=== PATIENT | female | born 1990 | race African-American/Black ===

== ENCOUNTER 2020-03-31 10:56 | Outpatient (CLI) | payer OTHER, SELFPAY ==
--- NOTE | ~2020-03-31 | US_ITS ---
EXAMINATION: US OB <= 14 weeks fetus DATE: 03/31/2020 11:24 INDICATION: viability assessment and dating during first trimester . TECHNIQUE: Real-time pelvic transabdominal and transvaginal ultrasound was performed. COMPARISON: None. FINDINGS: The uterus measures 11.4 x 5.4 x 6 cm. There is an intrauterine gestational sac. A yolk sa c is identified. heart motion is identified measuring 158 beats per minute (bpm) by M-mode Dopp ler. The crown rump length measures 2.7 cm , which correlates with an estimated gestational age of 9 weeks and 3 day(s) (+/-) 6 day(s). The left ovary is not visualized however no left adnexal abnormality is seen. The right ovary measure s 2.9 x 2.3 x 2.8 cm. There is normal vascular flow in the right ovary. There is no free fluid in the pelvis. IMPRESSION: 1. Live intrauterine with an estimated gestational age of 9 weeks and 3 day(s) (+/-) 6 day( s) and an estimated delivery date of 10/31/2020. Reviewed, dictated and finalized at location A. IMPRESSION: 1. Live intrauterine with an estimated gestational age of 9 weeks and 3 day(s) (+/-) 6 day(s) and an estimated delivery date of 10/31/2020.
== END 2020-03-31 10:57 ==
PROVIDERS: Visit Provider Obstetrics & Gynecology
DX: Z36.9 Encounter for antenatal screening, unspecified (principal); Z3A.09 9 weeks gestation of pregnancy
CPT/HCPCS: 76801

== ENCOUNTER 2020-05-10 12:45 | Outpatient (CLI) | payer OTHER, SELFPAY ==
[2020-05-10 13:46] LABS: Basophils Percent Auto 0.3 % (0.2-1.2); Eosinophils Absolute Auto 0.1 K/mm3 (0-0.3); Eosinophils Percent Auto 0.7 % (0-4.4); Hematocrit 40.2 % (37.0-47.0); Hemoglobin 13.6 g/dL (12.0-15.0); Immature Granulocyte Absolute 0.02 K/mm3 (0.00-0.031); Immature Granulocyte Percent A 0.3 % (0-0.5); Lymphocytes Absolute Auto 2.16 K/mm3 (0.9-3.2); Lymphocytes Percent Auto 31.2 % (18.3-44.2); Mean Corpuscular HGB Conc 33.8 g/dl (32-36); Mean Corpuscular Hemoglobin 27.6 pg (26-34); Mean Corpuscular Volume 81.7 fl (80-100); Mean Platelet Volume 9.9 fl (7.4-10.4); Monocytes Absolute Auto 0.5 K/mm3 (0.1-0.6); Monocytes Percent Auto 7.6 % (2.6-8.5); Neutrophils Absolute Auto 4.2 K/mm3 (1.3-6.7); Neutrophils Percent Auto 59.9 % (45.5-73.1); Platelet Count Result 234 k/mm3 (150-375); Red Blood Count 4.92 M/mm3 (4.2-5.4); Red Cell Distribution Width 14.1 % (11.5-14.5); White Blood Count 6.9 K/mm3 (4.5-10.0)
[2020-05-10 13:51] LABS: Add Urine Microscopic? YES; Appearance Urine Cloudy (Clear); Bacteria Urine 3+ /hpf; Bilirubin Urine Negative (Negative); Blood Urine Negative (Negative); Color Urine Yellow (Yellow); Glucose Urine UA Negative (Negative); Ketones Urine Negative (Negative); Leukocyte Esterase Ur 2+ LEU/UL (NEGATIVE); Mucus Urine Moderate /lpf; Nitrate Urine Negative (Negative); Protein Urine Negative (Negative); Specific Grav Ur 1.018 (1.001-1.035); Squamous Epithelial Cell Urine Many /hpf (Few); Urobilinogen Urine Negative mg/dL (<2.0)
[2020-05-10 14:39] LABS: HIV 1/2 Ab P24 Ag Result Negative (Negative)
[2020-05-10 15:20] LABS: Hepatitis B Surface Antigen Negative (Negative)
[2020-05-10 15:26] LABS: Hepatitis C Virus Antibody Negative (Negative)
[2020-05-12 10:55] LABS: Rapid Plasma Reagin Non-Reactive (NonReactive)
[2020-05-16 14:55] LABS: Hematocrit 41.6 % (35.0-45.0); Hemoglobin 13.7 g/dL (11.7-15.5); MCH 27.9 pg (27.0-33.0); MCV 84.7 FL (80.0-100.0); RDW 15.8 % (11.0-15.0); Red Blood Cell Count 4.91 Mill/uL (3.80-5.10)
== END 2020-05-10 12:46 | disposition home or self-care (01) ==
PROVIDERS: PCP Internal Medicine; Visit Provider Obstetrics & Gynecology
DX: Z34.90 Encounter for supervision of normal pregnancy, unspecified, unspecified trimester (principal)
CPT/HCPCS: 36415; 81001; 82306; 83021; 84443; 85025; 86592; 86703; 86762; 86787; 86803; 86850; 86900; 86901; 87086; 87088; 87340; G0432

== ENCOUNTER 2020-10-10 10:16 | Inpatient (IN) | payer OTHER, SELFPAY ==
[2020-10-10] VITALS (173 sets, daily range): BP systolic 65–131; BP diastolic 33–113; PULSE 65–225; TEMP 36.6–37.3; O2SAT 93–100; BMI 41.5
--- NOTE | 2020-10-10 10:16 | LDADM ---
This patient, Mila Bolivar, was admitted to Labor/Delivery/Recovery 106 on 10/10/20 at 10:16. Plans for labor, pain management and were discussed with patient. Patient/family oriented to hospital policies and general routines including ID bracelet, bed and alarms, visiting hours, pain management, procedures, bathroom and other care routines, personal items, smoking policy, room service/diet and guest tray routines, security routines, and visiting hours. Patient/Family are encouraged to report perceived risks to care and to ask questions if they do not understand what they are told or what they should do. See OBIX for further documentation.
--- NOTE | 2020-10-10 11:04 | PM.IMHP ---
H&P: HPI History of Present Illness Date/Time: 10/10/20 11:04 Chief Complaint: Rupture of membranes at 37 weeks Narrative: 30 yo, primigravida was seen in office for her routine PNC and stated she has noticed leaking of fluid since 9 am . Occasionally feeling ctxns.Denies Vb.Feels FM. In office GBS collected and pt sent to [facility] & [facility] and has positive ROM plus test. Review of Systems Review of Systems: All systems reviewed & are unremarkable except as noted in HPI and below Constitutional: Constitutional: Reports no additional constitutional complaints, Denies chills, Denies fever(s) and Denies headache(s) Eyes: Eyes: Reports as per HPI and Reports no additional eye complaints ENT: Reports system reviewed and no additional complaints, except as documented, Reports as per HPI, Reports Normal hearing present and Denies headache(s) Cardiovascular: Cardiovascular: Reports as per HPI, Reports no additional cardiovascular complaints, Denies chest pain and Denies dyspnea Respiratory: Respiratory: Reports as per HPI, Reports no additional respiratory complaints, Denies cough and Denies dyspnea Gastrointestinal: Gastrointestinal: Reports as per HPI, Reports no additional gastrointestinal complaints, Denies abdominal pain, Denies hematochezia, Denies change in bowel habits, Denies change in stool character, Denies constipation, Denies GI cramping, Denies heartburn, Denies diarrhea, Denies nausea, Denies vomiting and Denies hematemesis Genitourinary: Genitourinary: Reports no additional female genitourinary complaints, Reports as per HPI, Denies abnormal vaginal bleeding, Denies metrorrhagia, Denies hematuria, Denies change in libido, Denies urinary frequency, Denies post void dribbling, Denies genital pruritis, Denies genital lesions, Denies menorrhagia, Denies dyspareunia, Denies dysmenorrhea, Denies dysuria, Denies pelvic pain, Denies sexual dysfunction, Denies urinary incontinence, Denies urinary hesitancy, Denies urinary urgency, Denies vaginal discharge, Denies vaginal dryness, Denies vaginal odor and Denies vaginal pruritus Musculoskeletal: Musculoskeletal: Reports no additional musculoskeletal complaints and Reports as per HPI Integumentary/Breasts: Skin/Breast: Reports system reviewed and no additional complaints, except as docu, Reports as per HPI, Denies breast skin changes, Denies breast pain, Denies breast mass and Denies nipple discharge Neurologic: Reports system reviewed and no additional complaints, except as documented, Reports as per HPI, Reports Normal hearing present and Denies headache(s) Psychiatric: Psychiatric: Reports no additional psychiatric complaints, Reports as per HPI, Denies anxiety, Denies change in libido and Denies depression Endocrine: Endocrine: Reports no additional endocrine complaints, Reports as per HPI and Denies change in libido Hematologic/Lymphatic: Hematologic/Lymphatic: Reports no additional hematologic/lymphatic complaints, Reports as per HPI, Denies easy bleeding and Denies easy bruising Allergic/Immunologic: Allergic/Immunologic: Reports no additional allergic/immunologic complaints and Reports as per HPI PMFSH Past Medical History Medical History (Updated 10/10/20 @ 11:11 by Layla Boyd MD) Hypertension Surgical History Surgical History Torn ACL Family History Family History Father Testicular cancer Social History Social History Smoking status: Former smoker Tobacco type: cigarettes Alcohol intake: current Drinks per week: 2 Substance use: current Substance use type: marijuana Meds Home Medications and Allergies Home Medications Medication Instructions Recorded Confirmed Type folic acid 1 mg tablet 1 mg PO DAILY 04/22/20 09/23/20 History vits 75-iron 28 mg-folic pkg PO 04/22/20
[2020-10-10] MEDS: AMPICILLIN 2 GM/NS 100 ML 2 GM/100 ML BAG IVPB (11:08)
[2020-10-10] MEDS: LACTATED RINGERS 1,000 ML 125 ML IV CONT ×2 (11:08→19:10)
[2020-10-10] MEDS: OXYTOCIN 30 UNITS/NS 500 ML 30 UNITS/500 ML BAG 6 UNITS IV CONT (11:09)
[2020-10-10 12:15] LABS: HIV 1/2 Ab P24 Ag Result Negative (Negative)
[2020-10-10] MEDS: AMPICILLIN 1 GM/NS 50 ML 1 GM/50 ML BAG IVPB ×3 (14:53→22:53)
[2020-10-10] MEDS: fentaNYL CITRATE INJ (*CRX) 100 MCG/2 ML VIAL IV PUSH (16:44)
--- NOTE | 2020-10-10 21:11 | WPDANESEPP ---
Anes - Eval Pre Procedure Procedure: labor epidural Date/Time: 10/10/20 190 Surgeon: Oliver Preop Diagnosis: labor pain Pre Op Diagnosis: Labor Patient Data Age: 30 Gender: F Height: 1.57 m Weight: 103 kg Last Vital Signs Temp 36.6 C 10/10/20 18:30 Pulse 85 10/10/20 21:01 BP 107/63 10/10/20 21:01 Pulse Ox 96 10/10/20 21:07 Allergies Allergy/AdvReac Type Severity Reaction Status Date / Time No Known Allergies Allergy Verified 10/10/20 09:53 Home Medications Medication Instructions Recorded Confirmed Type folic acid 1 mg tablet 1 mg PO DAILY 04/22/20 10/10/20 History vits 75-iron 28 mg-folic 1 pkg PO DAILY 04/22/20 10/10/20 History acid 800 mcg-omega-3 oral combo pack ergocalciferol (vitamin D2) 1,250 1,250 mcg PO WEEKLY #14 cap 05/13/20 10/10/20 Rx mcg (50,000 unit) capsule cetirizine 10 mg capsule 10 mg PO DAILY 06/17/20 10/10/20 History Laboratory Tests 10/10/20 10/10/20 11:06 11:06 HIV 1&2 Ab/P24 Ag 4thGn Negative (Negative) Blood Type O Positive Antibody Screen Negative Patient hx anesthesia problems: none Family hx anesthesia problems: none PMFSH Past Medical History Medical History Hypertension Surgical History Surgical History Torn ACL Family History Family History Father Testicular cancer Social History Social History Smoking status: Former smoker Tobacco type: cigarettes Second hand tobacco smoke exposure: No Alcohol intake: current Drinks per week: 2 Substance use: never Substance use type: marijuana Gender identity (if verbalized by the patient): Female Spiritual care concerns: No Exam Day of Procedure 10/10/20 21:11 Patient weight: morbidly obese Heart: regular rate and rhythm Lungs: clear to auscultation and normal air movement Airway: Mallampati scale class II Neurological: alert and oriented
[2020-10-11] VITALS (230 sets, daily range): BP systolic 53–188; BP diastolic 12–165; PULSE 31–239; RESP 16; TEMP 36.5–37.8; O2SAT 79–100
[2020-10-11] MEDS: ONDANSETRON INJ 4 MG/2 ML VIAL IV PUSH (00:57)
[2020-10-11] MEDS: LACTATED RINGERS 1,000 ML 125 ML IV CONT ×2 (00:59→04:50)
[2020-10-11] MEDS: AMPICILLIN 1 GM/NS 50 ML 1 GM/50 ML BAG IVPB ×2 (03:15→07:39)
[2020-10-11] MEDS: SODIUM CHLORIDE 0.9% IV 300 ML 600 ML I-UTERINE (05:34)
--- NOTE | 2020-10-11 10:37 | PM.IMHP ---
H&P: HPI History of Present Illness Date/Time: 10/11/20 10:37 Chief Complaint: PROM at term x 24 hr, intolerance to labor Failure to progress Narrative: 30 yo Primigravida who is been admitted yesterday at 37 weeks with PROM at term.Pt had PROM at term around 9 am yesterday. Pt is afebrile and is on antibiotics for GBS protocol as it is unknown.When pt admitted cervical exam was 1 cm /long/-3 and was started on Pitocin per protocol. During the labor process multiple times Pitocin was stopped due to intolerance to labor. Also amnioinfusion was performed .Pt cervical exam was 6 cm/80/-2 with moderate amount of caput formation.As due to intolerance to labor and failure to progress will proceed with Primary CD. Procedure discussed in detail as ell as risk of procedure i.e infection,bleeding may require BT which pt agrees, injury to bowel/bladder and adjacent structure/anesthesia risk ,can be life threatening. Pt as well as FOB voiced verbalized. ALL Question answered. Review of Systems Constitutional: Constitutional: Reports as per HPI, Denies chills and Denies fever(s) Eyes: Eyes: Denies blurry vision and Denies change in vision ENT: Reports Normal hearing present Cardiovascular: Cardiovascular: Reports as per HPI, Denies chest pain and Denies dyspnea Respiratory: Respiratory: Denies cough and Denies dyspnea Gastrointestinal: Gastrointestinal: Reports as per HPI Genitourinary: Genitourinary: Reports as per HPI [facility] Past Medical History Medical History (Updated 10/11/20 @ 10:49 by Layla Boyd MD) Failure to progress in labor intolerance to labor, delivered, current hospitalization Hypertension PROM (premature rupture of membranes) Surgical History Surgical History Torn ACL Family History Family History Father Testicular cancer Social History Social History Smoking status: Former smoker Tobacco type: cigarettes Second hand tobacco smoke exposure: No Alcohol intake: current Drinks per week: 2 Substance use: never Substance use type: marijuana Gender identity (if verbalized by the patient): Female Spiritual care concerns: No Meds Home Medications and Allergies Home Medications Medication Instructions Recorded Confirmed Type folic acid 1 mg tablet 1 mg PO DAILY 04/22/20 10/10/20 History vits 75-iron 28 mg-folic 1 pkg PO DAILY 04/22/20 10/10/20 History acid 800 mcg-omega-3 oral combo pack ergocalciferol (vitamin D2) 1,250 1,250 mcg PO WEEKLY #14 cap 05/13/20 10/10/20 Rx mcg (50,000 unit) capsule cetirizine 10 mg capsule 10 mg PO DAILY 06/17/20 10/10/20 History Allergies Allergy/AdvReac Type Severity Reaction Status Date / Time No Known Allergies Allergy Verified 10/10/20 09:53 Vital Signs Vital Signs - 24 hr 10/10/20 10:46 10/10/20 11:00 10/10/20 11:16 Temperature 97.9 F Pulse Rate 98 99 Blood Pressure 125/68 99/81 L Pulse Oximetry 10/10/20 11:31 10/10/20 11:46 10/10/20 12:01 Temperature Pulse Rate 97 79 84 Blood Pressure 91/63 L 112/77 91/73 L Pulse Oximetry 10/10/20 12:16 10/10/20 12:31 10/10/20 12:46 Temperature Pulse Rate 88 103 H 87 Blood Pressure 108/74 123/69 110/71 Pulse Oximetry 10/10/20 13:00 10/10/20 13:01 10/10/20 13:17 Temperature 98.1 F Pulse Rate 91 86 Blood Pressure 124/76 110/65 Pulse Oximetry 10/10/20 13:31 10/10/20 13:46 10/10/20 14:01 Temperature Pulse Rate 93 76 103 H Blood Pressure 104/59 L 105/50 L 112/86 Pulse Oximetry 10/10/20 14:16 10/10/20 14:31 10/10/20 14:46 Temperature Pulse Rate 89 103 H 94 Blood Pressure 106/53 L 107/77 118/74 Pulse Oximetry 10/10/20 14:57 10/10/20 15:06 10/10/20 15:11 Temperature 98.1 F Pulse Rate Blood Pressure Pulse Oxim
--- NOTE | 2020-10-11 10:53 | WPDHPUPDATE1 ---
History and Physical Update Update Date/Time: 10/11/20 10:53 History and Physical has been reviewed, including an updated exam of the patient. There are NO changes in the patient's condition. Risks, benefits, and alternatives have been discussed and questions answered. Patient agrees to proceed with procedure.
--- NOTE | 2020-10-11 11:02 | WPDANESEFPP ---
Anes - Eval Final PreProcedure Day of Procedure 10/11/20 11:02 Patient weight: morbidly obese Heart: regular rate and rhythm Lungs: clear to auscultation Neurological: alert and oriented ASA classification: III Emergent: yes Anesthetic plan: proceed Anesthesia type and monitoring: regional epidural and standard monitoring Other findings: exam per JV Informed Consent: The patient's anesthetic plan and its attendant risks and benefits were discussed with the patient/family/POA. Questions were solicited and answers provided to the satisfaction of the patient/family/POA.
--- NOTE | 2020-10-11 12:14 | PM.OBPRVD ---
OB - Delivery Note Procedure Delivery date: 10/11/20 Procedure: Procedures Operation Date: 10/11/20 10:45 <No data on this case meets the specified criteria> Intrapartal events: Prolonged Labor > 20 hours, Intolerance and Failure to Progress in Labor Induction method: per pitocin protocol Delivery monitor: internal FHT and internal uterine Route of delivery: Specimen: Yes (cord blood, gases, placenta) Quantitative Blood Loss (ml): 600 Anesthesia type: Epidural Disposition: floor Complications: None [place] Baby Date of : 10/11/20 Weeks of gestation at delivery: 37 Infant gender: Male Weight (pounds): 5 Weight (ounces): 13 presentation: vertex Placenta delivery description: Spontaneous cord vessel description: 3 Vessels, Nuchal Cord (x1) and Around Body x2 score one minute: 8 score five minutes: 8
--- NOTE | 2020-10-11 12:18 | PM.OP ---
Procedure Note - Brief Procedure Note - Brief Date of procedure: 10/11/20 Pre-op diagnosis: Labor IUP at 37 weeks with prolonged PROM intolerance to labor Failure to progress Post-op diagnosis: same Procedure performed: Primary section Description of procedure: After informing the risk of the procedure that is infection, bleeding which may require blood transfusion which patient agrees, injury to bowel and bladder adjacent structures, anesthesia risk, and can be life-threatening, informed consent was obtained from the patient. Patient was taken to the OR and given dorsal supine position with a leftward tilt after dosing epidural anesthesia. patient was prepped and draped in normal sterile fashion. Patient already had Shea catheter as she was in labor . time-out was performed. Patient received antibiotic as per protocol. A Pfannenstiel skin incision was made with the scalpel and carried to the underlying layer of fascia. Fascia was incised in the midline and extended laterally bluntly. The inferior aspect of the fascial incision was grasped with the Leatha clamps elevated underlying rectus muscle dissected off bluntly. Similarly the inferior aspect of the fascial incision was grasped with a Leatha clamp elevated and underlying rectus muscle dissected off bluntly. Rectus muscles in midline and peritoneal cavity entered bluntly. Peritoneal cavity was extended superiorly and inferiorly with good visualization of bladder. Tejinder retractor was placed. Bladder blade was placed. Vesicouterine peritoneum was identified and bladder flap was created digitally. Bladder blade reinserted. Transverse incision was then made on the lower uterine segment and extended laterally bluntly. head was delivered atraumatically and the nuchal cord was released. After delivering the head and the rest of the torso was delivered. Infant nose and mouth was suctioned cord was clamped and cut and handed to waiting clinical investigator. Cord blood and gases were collected. Placenta was delivered spontaneously with trailing membranes. Uterus was exteriorized and cleared of all clots. Uterine incision was approximated with 0 Polysorb in a running locked fashion. Second imbricated layer of 0 Polysorb was performed. Excellent hemostasis was noted. Posterior cul-de-sac was cleared of all clots. Uterus was entered into the abdomen and the lateral gutters were cleared of all clots. One more time excellent hemostasis noted at the uterine incision site. With psychogenic peritoneum was approximated with 3 0 Polysorb. Peritoneum was approximated with Schueler Polysorb. Fascia was approximated with 0 Polysorb. Subcutaneous layer was approximated with Schueler Polysorb and skin was approximated with 4 0 Biosyn and Dermabond. Patient tolerated procedure well. Sponge lap needle counts correct x2. taken to nursery and mother was taken to the labor and delivery recovery room awake in stable condition. Anesthesia: epidural Surgeon: Layla Boyd MD Estimated blood loss (mL): 600 IV fluids (mL): 1,000 Urine output (mL): 125 Drains: Yes (Shea) Packing: No Pathology: yes (Placenta) Complications: No immediate complications Condition: stable Disposition: floor Findings: Term male infant delivered via vertex Presentation , Direct OP , extended neck, nuchal cord x1, left arm nuchal cord x2, Placenta delivered spontaneously and sent to pathology. Normal uterus fallopian tubes and ovaries.
[2020-10-11] MEDS: MORPHINE SULFATE (*CRX) 2 MG/ML INJ 3 MG IV PUSH (12:31)
[2020-10-11] MEDS: KETOROLAC 30 MG/ML VIAL (*BKC) IV PUSH (16:04)
[2020-10-11] MEDS: DEXTROSE 5%/0.45% SOD CHL 1,000 ML 125 ML IV CONT (16:08)
[2020-10-11] MEDS: DOCUSATE SODIUM 100 MG CAPSULE PO (19:45)
[2020-10-11] MEDS: IBUPROFEN 600 MG TABLET PO (23:24)
[2020-10-11] MEDS: ACETAMINOPHEN 325 MG TABLET 650 MG PO (23:25)
[2020-10-12] VITALS: BP 104/62; PULSE 81; RESP 16; TEMP 36.7; O2SAT 100
--- NOTE | 2020-10-12 03:00 | PC.NURSE ---
Daylight Savings Time For Daylight Savings Time Beginning in the Spring - Clocks are moved ahead. For [facility], the time of change occurs at 0200 hrs. Time is taken from the medical observer. This entry on the patient's chart recognizes the change in time reflected during documentation. Example: 2 entries for vital signs may be charted for 0200 hrs.
[2020-10-12 04:00] VITALS: BP 100/66; PULSE 74; RESP 16; TEMP 36.7; O2SAT 98
[2020-10-12 05:47] LABS: Basophils Percent Auto 0.2 % (0.2-1.2); Eosinophils Absolute Auto 0.1 K/mm3 (0-0.3); Eosinophils Percent Auto 0.6 % (0-4.4); Hematocrit 32.9 % (37.0-47.0); Hemoglobin 10.8 g/dL (12.0-15.0); Immature Granulocyte Absolute 0.03 K/mm3 (0.00-0.031); Immature Granulocyte Percent A 0.3 % (0-0.5); Lymphocytes Absolute Auto 1.88 K/mm3 (0.9-3.2); Lymphocytes Percent Auto 17.9 % (18.3-44.2); Mean Corpuscular HGB Conc 32.8 g/dl (32-36); Mean Corpuscular Hemoglobin 27.6 pg (26-34); Mean Corpuscular Volume 83.9 fl (80-100); Mean Platelet Volume 10.2 fl (7.4-10.4); Monocytes Percent Auto 9.3 % (2.6-8.5); Neutrophils Absolute Auto 7.6 K/mm3 (1.3-6.7); Neutrophils Percent Auto 71.7 % (45.5-73.1); Platelet Count Result 144 k/mm3 (150-375); Red Blood Count 3.92 M/mm3 (4.2-5.4); Red Cell Distribution Width 14.5 % (11.5-14.5); White Blood Count 10.5 K/mm3 (4.5-10.0)
[2020-10-12 07:00] VITALS: BP 100/48; PULSE 87; RESP 16; TEMP 36.3; O2SAT 98
[2020-10-12] MEDS: MULTIVIT/MIN/PREN/FOL AC/IRON TABLET 1 TAB PO (09:27)
[2020-10-12] MEDS: DOCUSATE SODIUM 100 MG CAPSULE PO ×2 (09:27→16:23)
[2020-10-12] MEDS: IBUPROFEN 600 MG TABLET PO ×2 (09:27→16:23)
[2020-10-12] MEDS: HYDROcodone/acetaminophen (*CRX) 5-325 MG TABLET 1 TAB PO ×4 (09:28→19:19)
--- NOTE | 2020-10-12 10:03 | PM.OBPNVD ---
OB - PN: Subj Subjective Date/time seen: 10/12/20 10:03 Patient comments: pain well controlled, incisional pain (well controlled), tolerating diet and flatus present [place] baby status: doing well and nursing well [place] feeding status: exclusively breast feeding Narrative: Pain well controlled Tolerating regular diet urinating without difficulty Lochia less than menses. baby boy doing well and BF OB - PN: Obj Data Labs CBC & Chem 7: 10/12/20 05:30 Labs: Laboratory Results - last 24 hr 10/12/20 05:30 WBC 10.5 H RBC 3.92 L Hgb 10.8 L Hct 32.9 L MCV 83.9 MCH 27.6 MCHC 32.8 RDW 14.5 Plt Count 144 L MPV 10.2 Immature Gran % (Auto) 0.3 Neut % (Auto) 71.7 Lymph % (Auto) 17.9 L [place] % (Auto) 9.3 H Eos % (Auto) 0.6 Baso % (Auto) 0.2 Lymph # (Auto) 1.88 [place] # (Auto) 1.0 H Eos # (Auto) 0.1 Baso # (Auto) 0.0 Abs Immat Gran (auto) 0.03 Absolute Neuts (auto) 7.6 H Absolute Nucleated RBC 0.0 Nucleated RBC % 0.0 OB - PN A/P Plan day: 1 Plan: routine care Comments: encourage ambulation BF instructed. Desires infant to be circumcised. discussed procedure in detail as well as risk i.e infection/bleeding/injury to penis. pt voiced verbalized. informed consent obtained. Time Spent With Patient Time: Total time spent is greater than 50% in coordination of care (as documented) at patient's floor/unit and/or counseling patient: Time with patient: 15 - 25 minutes Review of Systems Constitutional: Constitutional: Reports as per HPI, Denies chills and Denies fever(s) Eyes: Eyes: Reports as per HPI and Denies blurry vision ENT: Reports Normal hearing present Cardiovascular: Cardiovascular: Reports as per HPI, Denies chest pain, Denies syncope, Denies lightheadedness and Denies dyspnea Respiratory: Respiratory: Reports as per HPI, Denies cough and Denies dyspnea Gastrointestinal: Gastrointestinal: Reports as per HPI Genitourinary: Genitourinary: Reports as per HPI Musculoskeletal: Musculoskeletal: Reports as per HPI Neurologic: Reports Normal hearing present Exam Const: General: cooperative, healthy appearing, comfortable, no acute distress, well developed, alert, awake and Physically active Nutritional Appearance: obese Orientation/consciousness: patient oriented x3 Limitations: no limitations HENMT: Ears: hearing grossly normal bilaterally Resp: Effort & Inspection: normal respiratory effort and able to speak in complete sentences Auscultation: clear to auscultation bilaterally Cardio: Rate: regular rate Rhythm: regular rhythm GI: Inspection: normal to inspection GI Palp: Yes abdominal tenderness (appropriate for surgery), Yes Soft to palpation and Yes Other GI palpation findings present (Incicison: C/D/I.Fundus firm and below umbilicus) Auscultation: normal bowel sounds Rectal Exam: deferred Neuro: General: oriented to person, oriented to place, oriented to time and patient oriented x3 Extrem: General: normal to inspection, full ROM and no calf tenderness Psych: Appearance: grossly normal Mental Status: mental status grossly normal Speech and movement: Normal speech and movement present Affect: normal affect Attitude: cooperative Thought process: Normal thought process present Thought content: Yes Normal thought content present Insight: Good insight present (Psych) Judgement: Good judgement present (Psych)
--- NOTE | 2020-10-12 10:08 | PM.OBDSVD ---
DS: Admitting Diagnosis Admitting Diagnosis Admitting Diagnosis: PROM at 37 weeks DS: Discharge Diagnosis Discharge Diagnosis (1) intolerance to labor, delivered, current hospitalization: Code(s): O77.9 - Labor and delivery complicated by stress, unspecified Status: Acute (2) Failure to progress in labor: Code(s): O62.2 - Other uterine inertia Status: Acute (3) PROM (premature rupture of membranes): Code(s): O42.90 - Premature rupture of membranes, unspecified as to length of time between rupture and onset of labor, unspecified weeks of gestation Status: Acute OB - DS: Summary OB Procedures : Ultrasound OB Procedures Intrapartum: low cervical, transverse OB Procedures: : None Peripartum Data Delivery Method: Section Procedures: Procedures Operation Date: 10/11/20 10:45 Actual Procedures Side Surgeon p Section Not Applicable Layla Boyd MD complications: none Status at Discharge Functional status at discharge: independent ambulation Overall status at discharge: patient is progressing back to baseline Time Spent with Patient Time attestation: Total time spent providing and/or coordinating discharge services: Exam Const: General: cooperative, healthy appearing, comfortable, no acute distress, well developed, alert, awake and Physically active Nutritional Appearance: obese Orientation/consciousness: patient oriented x3 Limitations: no limitations HENMT: Head: normal to inspection Eyes: General: appearance normal, both eyes and all related structures Resp: Effort & Inspection: normal respiratory effort and able to speak in complete sentences Auscultation: clear to auscultation bilaterally Cardio: Rate: regular rate Rhythm: regular rhythm GI: Inspection: normal to inspection, non-distended and incision (C/D/I) GI Palp: No abdominal tenderness, Yes Soft to palpation and Yes Other GI palpation findings present (Fundus firm below umbilicus) Auscultation: normal bowel sounds Rectal Exam: deferred Skin: General skin exam: normal color Neuro: General: oriented to person, oriented to place, oriented to time and patient oriented x3 Cognition (Neuro): normal cognition Speech: normal speech Extrem: General: normal to inspection, full ROM and no calf tenderness Psych: Appearance: grossly normal Mental Status: mental status grossly normal Speech and movement: Normal speech and movement present Affect: normal affect Attitude: cooperative Thought process: Normal thought process present Thought content: Yes Normal thought content present Insight: Good insight present (Psych) Judgement: Good judgement present (Psych) DS: Data Data Completed and Pending Pending studies at discharge: Pending at discharge 10/11/20 11:23 Surgical [PTH] Routine Labs on day of discharge: Labs from last 24 hours 10/12/20 05:30 WBC 10.5 H RBC 3.92 L Hgb 10.8 L Hct 32.9 L MCV 83.9 MCH 27.6 MCHC 32.8 RDW 14.5 Plt Count 144 L MPV 10.2 Immature Gran % (Auto) 0.3 Neut % (Auto) 71.7 Lymph % (Auto) 17.9 L [place] % (Auto) 9.3 H Eos % (Auto) 0.6 Baso % (Auto) 0.2 Lymph # (Auto) 1.88 [place] # (Auto) 1.0 H Eos # (Auto) 0.1 Baso # (Auto) 0.0 Abs Immat Gran (auto) 0.03 Absolute Neuts (auto) 7.6 H Absolute Nucleated RBC 0.0 Nucleated RBC % 0.0 Discharge Plan Discharge Attending physician on discharge: Layla Boyd Consulting providers: Bneito Hughes Discharging Clinician: Paul Jones Patient Disposition: Home, Self-Care Activity: pelvic rest and other - see discharge instructions Diet: regular Wound Care Instructions: incision open to air Discharge Instructions: Education: Mom and Baby Guide Given to: Patient Follow-Up: Call your delivering provider's office for an appointment to be seen in: 4 weeks Mom and baby should come to the
--- NOTE | 2020-10-12 14:59 | WPDANLDPN2 ---
Anes-Prog Note L&D Date/Time: 10/12/20 14:59 Comfortable throughout: section Neuraxial method: epidural Epidural/Spinal procedure site: clean & non-tender Neuro status: Neuro function grossly intact. Cardiovascular status: normal Respiratory status: normal Airway patency: baseline Mental status: baseline Post-Op hydration status: normal Vital Signs: Last Vital Signs Temp 36.3 C L 10/12/20 07:00 Pulse 87 10/12/20 07:00 Resp 16 10/12/20 07:00 BP 100/48 L 10/12/20 07:00 Pulse Ox 98 10/12/20 07:00 Pain score (VAS): no complaints I/O: Intake & Output 10/11/20 10/12/20 10/12/20 22:59 07:59 15:59 Intake Total Output Total 600 Balance -600 Post-procedural complaints: none Patient feedback: Patient satisfied with anesthetic care.
--- NOTE | 2020-10-12 15:00 | WPDANLDNPN2 ---
Anes-Prog Note L&D-Neuraxial Date/Time: 10/12/20 15:00 Neuraxial medications: epidural PF morphine Opiod-related complaints: none Patient feedback: Patient satisfied with post-operative pain management.
[2020-10-12 20:05] VITALS: BP 104/59; PULSE 110; RESP 16; TEMP 36.4
[2020-10-13] MEDS: IBUPROFEN 600 MG TABLET PO ×4 (01:29→23:53)
--- NOTE | 2020-10-13 07:31 | WPDANLDPN2 ---
Anes-Prog Note L&D Date/Time: 10/13/20 07:31 Comfortable throughout: section Neuraxial method: epidural Epidural/Spinal procedure site: clean & non-tender Neuro status: Neuro function grossly intact. Cardiovascular status: normal Respiratory status: normal Airway patency: baseline Mental status: baseline Post-Op hydration status: normal Vital Signs: Last Vital Signs Temp 36.4 C 10/12/20 20:05 Pulse 110 H 10/12/20 20:05 Resp 16 10/12/20 20:05 BP 104/59 L 10/12/20 20:05 Pulse Ox 98 10/12/20 07:00 Pain score (VAS): 0 I/O: Intake & Output 10/12/20 10/12/20 10/13/20 15:59 23:59 07:59 Output Total 600 Balance -600 Post-procedural complaints: none Patient feedback: Patient satisfied with anesthetic care.
--- NOTE | 2020-10-13 07:31 | WPDANLDNPN2 ---
Anes-Prog Note L&D-Neuraxial Date/Time: 10/13/20 07:31 Neuraxial medications: epidural PF morphine Opiod-related complaints: none Patient feedback: Patient satisfied with post-operative pain management.
[2020-10-13 07:50] VITALS: BP 120/58; PULSE 101; RESP 20; TEMP 36.6; O2SAT 100
[2020-10-13 08:00] VITALS: PULSE 101; RESP 20; O2SAT 100
[2020-10-13] MEDS: SIMETHICONE 80 MG TAB.CHEW PO ×2 (08:05→15:24)
[2020-10-13] MEDS: HYDROcodone/acetaminophen (*CRX) 5-325 MG TABLET 1 TAB PO ×4 (08:07→23:55)
[2020-10-13] MEDS: DOCUSATE SODIUM 100 MG CAPSULE PO (08:08)
[2020-10-13] MEDS: MULTIVIT/MIN/PREN/FOL AC/IRON TABLET 1 TAB PO (08:08)
--- NOTE | 2020-10-13 08:40 | PC.NURSE ---
Consult with pt., mother reports infant has been latching for all feedings. Mother states is latching and nursing without discomfort. Mother states she has been advised to supplement after breastfeedings. Discussed weight, output, jaundice and satisfaction are indicators of effective and intake. Reviewed infant requires supplement due to 37 17 week and jaundice is increasing. Reviewed supplementation is is temporary and may be discontinued once infant jaundice is resolved and is more eagerly feeding. Mother states she has pumped a few times since and infant has had supplementation the first day due to sleepiness. Reviewed breast pump care and usage, pumping schedule, nipple care, and collection and storage of breast milk. Encouraged [id number], breast massage and manual expression to stimulate supply. Assessed patient for correct flange size, placement and draw. Patient verbalizes and demonstrates understanding of instructions. Feeding plan is for mother to put infant to breast each feeding for 20 minutes, supplement 25mls and to pump. Mother voices understanding and will supplement as infant requires.
--- NOTE | 2020-10-13 09:10 | PC.NURSE ---
Mother called out for assist/observation of feeding. Reviewed infant feeding cues, frequencies, duration of feedings, feeding elimination flow sheet, and signs of adequate intake. Demonstrated stimulation techniques to wake infant for feeding. Assisted with to breast. Reviewed positioning/alignment in cross cradle, holding breast in U hold and guided asymmetrical latch on. was able to latch correctly within a few attempts. nursed eagerly, with bursts of intermittent steady draws and short chewy suckling with occasional swallowing noted. Reviewed signs of a correct latch, effective nursing and suck swallow ratio. Infant was able to maintain latch. Mother reported tenderness at times, infant had slipped to shallow latch. Demonstrated how to adjust latch more deeply while feeding. Mother quickly reports she can feel is latched more deeply and has minimal tenderness. Suggested to stimulate while feeding to keep awake and nursing effectively for increased stimulation and increased intake. Instructed feeding should be initiated three hours from start of last feeding or if feeding cues are noted before. Mother voiced understanding of information shared. Discussed how 's sleepy feeding and short chewy suck may impact intake and empting of the breast. Mother states infant has had this feeding pattern with the short chewy suckling and long pausing. Discussed and the 37 week , establishing may have its own unique set of circumstances due to their immaturity. infants may be less alert, have less stamina and may have issues with latch, suck and swallow. With the possible inability to have a vigorous suck swallow, infants may not be adequately stimulating mother and/or able to have adequate milk transfer. Pumping should be considered for additional stimulation and to offer EBM as part of supplement if needed. Reviewed pumping is important to assist with stimulation of milk supply and mother may give any EBM as part of supplement. Advised should have 10-15 mls of EBM/formula after each . Parents are willing to follow supplementation suggestion.
--- NOTE | 2020-10-13 12:05 | PC.NURSE ---
Mother called out for assist with feeding. Infant is more awake with feeding cues noted. Demonstrated stimulation techniques to wake infant for feeding. Assisted with to breast. Reviewed positioning/alignment, holding breast and asymmetrical latch on. Infant was able to latch correctly. nursed eagerly, with steady draws and occasional swallowing for burst follo wed with long pausing and swallowing noted. Suggested to stimulate infant while feeding to keep awake and nursing effectively for increased stimulation and increased intake. Instructed mother to call out for RN assistance if she is unable to latch for feeding or she has discomfort with nursing. Reviewed signs of a correct latch, effective nursing and suck swallow ratio. was able to maintain latch without discomfort to mother. Nipple care reviewed.
--- NOTE | 2020-10-13 13:48 | P.PNOB_ITS ---
OB - PN: Subj Subjective Date/time seen: 10/13/20 0820 She states adequate pain control. Baby is doing well. No leg pain. Positive flatus. Tolerating regular food. Ambulating without problems. OB - PN: Obj Data Labs CBC & Chem 7: 10/12/20 05:30 OB - PN A/P Assessment and Plan (1) intolerance to labor, delivered, current hospitalization: Code(s): O77.9 - Labor and delivery complicated by stress, unspecified Status: Acute Assessment and Plan: POD2 s/p ceserean section. She is doing well. Continue routine care. Time Spent With Patient Time: Total time spent is greater than 50% in coordination of care (as docu mented) at patient's floor/unit and/or counseling patient: Exam Const: General: comfortable and no acute distress Resp: Effort & Inspection: normal respiratory effort Auscultation: clear to auscultation bilaterally GI: Other: no guarding, incision intact, no erythema or drainage Extrem: Other: nontender, no edema Psych: Mental Status: mental status grossly normal Affect: normal affect
[2020-10-13 19:58] VITALS: BP 97/56; PULSE 81; RESP 18; TEMP 36.4; O2SAT 100
[2020-10-14 07:30] VITALS: BP 106/49; PULSE 96; RESP 18; TEMP 36.6; O2SAT 100
[2020-10-14] MEDS: MULTIVIT/MIN/PREN/FOL AC/IRON TABLET 1 TAB PO (09:45)
[2020-10-14] MEDS: DOCUSATE SODIUM 100 MG CAPSULE PO (09:45)
[2020-10-14] MEDS: HYDROcodone/acetaminophen (*CRX) 5-325 MG TABLET 1 TAB PO (09:46)
[2020-10-14] MEDS: IBUPROFEN 600 MG TABLET PO (09:46)
--- NOTE | 2020-10-14 10:15 | PC.NURSE ---
Consult with pt., parents report infant has been more awake and eagerly feeding for increased durations during the night. Parents have been supplementing after each feeding as suggested due to jaundice and weight. Parents report infant is easily nippling 15-20 mls EBM/formula. Mother is pumping after each feeding without difficulties/discomfort and is now pumping 2 mls each session. Parents are unsure if they should continue with supplementation now infant is more eagerly feeding. Suggested they continue until seen by ICP, is gaining weight and jaundice is resolving. Parents are willing to supplement as needed. Mother is able to independently latch infant with appropriate positioning/alignment. She denies any nipple discomfort, is feeding as required and waking infant to feed if needed. has had several effective feedings for short bursts in the past 24 hours, and is currently meeting outcomes for weight, output, jaundice and feeding frequencies. Mother states she feels confident to continue effective at home. Reviewed transition to breast milk, signs of adequate intake, and engorgement/relief. Instructed to call ICP if intake/output less than required. Reviewed regular medications mother is taking. Information provided per Cristal. Reviewed community resources on the [facility] website and in the Mom/Baby guide. Information on outpatient services provided. Mother has no further questions at this time.
[2020-10-14 12:25] VITALS: BP 112/62; PULSE 92; RESP 16; TEMP 36.3; O2SAT 98
[2020-10-15 11:23] VITALS: BP 104/61; PULSE 96; RESP 20; TEMP 36.9; O2SAT 100
== END 2020-10-14 17:48 | disposition home or self-care (01) | DRG 787 ==
LOC: ANHLDR 10:41 → ANHOB2 10-12 10:11 → ANHLDR 10-15 09:48 → ANHOB2 10-15 09:48
PROVIDERS: Admitting Provider Obstetrics & Gynecology; PCP Internal Medicine; Visit Provider Obstetrics & Gynecology
PROC: 10D00Z1 Extraction of Products of Conception, Low, Open Approach (ICD-10-PCS; CPT 59514; principal; 2020-10-11 10:45)
DX: O42.92 Full-term premature rupture of membranes, unspecified as to length of time between rupture and onset of labor (principal); O10.92 Unspecified pre-existing hypertension complicating childbirth; Z37.0 Single live birth; Z3A.37 37 weeks gestation of pregnancy; O36.8330 Maternal care for abnormalities of the fetal heart rate or rhythm, third trimester, not applicable or unspecified; O99.214 Obesity complicating childbirth; E66.01 Morbid (severe) obesity due to excess calories; O69.81X0 Labor and delivery complicated by cord around neck, without compression, not applicable or unspecified; O69.82X0 Labor and delivery complicated by other cord entanglement, without compression, not applicable or unspecified; O62.0 Primary inadequate contractions
CPT/HCPCS: 36415; 85025; 86703; 86850; 86900; 86901; 88307; A9270; C1765; G0432; J0131; J0290; J1885; J2270; J2274; J2405; J2590; J2795; J3010; J7030; J7120

== ENCOUNTER 2020-11-05 10:51 | Outpatient (CLI) | payer OTHER, SELFPAY ==
--- NOTE | 2020-11-05 12:23 | PC.NURSE ---
IN 1005 OUT 1100 HISTORY: Pt. delivered at [facility] at 37 weeks. had no complications after delivery. Mother had no complications after delivery. Infant is now 25 days old. Infant appears to be well cared for. Infant has been seen by ICP as scheduled. Infant last seen by ICP at 1 week. Mother reports: is put to breast every 20 Mother wishes: Currently at 6 wets per day and 2 yellow seedy stools per day. weight: 5#13 Discharge weight: Last Weight: at ICP office 6#3 Pre feeding weight: 3202 Post feeding weight: 3231 OBSERVATION: Suggested use/need of a nipple shield, larger flanges, supplementation nursing system, double electric hospital grade pump to assist with ?. Offered supply thru [facility], advised supply is available at other retail locations. Pt. chose to use [facility]. PLAN: Mother will follow above feeding plan using techniques for deeper latch. Mother will call with further questions or concerns. Follow up visit/phone call scheduled for ///////
--- NOTE | 2020-11-05 12:27 | PC.NURSE ---
IN 1005 OUT 1100 HISTORY: Pt. delivered at [facility] at 37 weeks. had no complications after delivery. Mother had no complications after delivery. Infant is now 25 days old. Infant appears to be well cared for. Infant has been seen by ICP as scheduled. Infant last seen by ICP at 1 week. Mother reports: Mother puts infant to breast every 2-3 hours during the day. nurses for 10-15 minutes each feeding. Mother pumps 1 oz after each feeding session during the day. Pt's mother or FOB will bottle EBM of 2-3 oz each feeding at night, allowing mother to sleep for 8 hours. Mother has pain with latch and during entire feeding more on right than left. Mother has concerns that is not getting enough, fussy after feedings, is sleepy at feedings, she does not feel a let down and she has a low milk supply. Mother wishes: To improve latch and increase milk supply. Currently at 6 wets per day and 2 yellow seedy stools per day. weight: 5#13 Discharge weight: Last Weight: 1 week at ICP office 6#3 Pre feeding weight: 3202 Post feeding weight: 3231 after 1st breast OBSERVATION: Mother puts infant to breast in cradle position, allowing to latch shallow to nipple and with head turned to the side. Reviewed positioning/alignment in cross cradle, holding breast in U hold and guided asymmetrical latch on. was able to latch correctly. Infant nursed eagerly, with steady draws and frequent swallowing noted. Reviewed signs of a correct latch, effective nursing and suck swallow ratio. Discussed how to hear and observe infant swallowing, as mother does not feel let down. Infant was able to maintain latch without discomfort to mother. Advised to stimulate while feeding to keep infant awake and effectively nursing for increased intake and to stimulate milk supply. Mother wanted to switch to cradle, suggested to maintain holding breast during entire feeding to assist with maintaining deep latch. Demonstrated how to adjust latch more deeply while feeding, if should slip to shallow latch. Infant is sleepy with long pausing while feeding, advised mother must stimulate to keep feeding and not allow to fall asleep. observed 20 minutes on right breast and responded with increased nursing if stimulated. Advised to burp and return to breast as feeding cues noted. Mother was able to independently latch infant correctly to left breast. Infant nursed eagerly with stimulation. Both nipples are dry with slight redness, nipple care reviewed. PLAN: Mother will follow above feeding plan using techniques for deeper latch, keeping awake and effectively feeding for increased intake and allowing to feed on both breasts per feeding if infant is showing feeding cues. Suggested mother put infant to breast at least once at night to assist with stimulation and empting of breast to increase supply. Mother will call with further questions or concerns. Follow up phone call scheduled for TuesdayNovember 10.
== END 2020-11-05 10:52 | disposition home or self-care (01) ==
LOC: ANHOBOP 10:53
PROVIDERS: PCP Internal Medicine; Visit Provider Pediatrics
DX: O92.79 Other disorders of lactation (principal)
CPT/HCPCS: 99212; G0463

== ENCOUNTER → 2021-07-28 10:20 | Outpatient (CLI) | payer OTHER, SELFPAY ==
[2021-07-29 13:33] LABS: SARS-CoV-2 RNA PCR Positive
== END ==
PROVIDERS: PCP Internal Medicine; Visit Provider Internal Medicine
DX: U07.1 COVID-19 (principal)
CPT/HCPCS: C9803; U0003; U0005